=== PATIENT | male | born 2000 | race Caucasian/White ===

== ENCOUNTER 2020-07-08 01:58 | Emergency (ER) | payer MEDICAID ==
[~2020-07-08] VITALS: Ht 177.8 cm; Wt 68.0 kg
[2020-07-08 02:30] VITALS: BP 105/68
--- NOTE | 2020-07-08 02:34 | Emergency Room Report ---
History of Present Illness General Chief Complaint: Flu Like Symptoms Source: Patient Present Illness HPI This is a 20-year-old male with no past medical history. He presents with chief complaint of flulike illness. Ongoing for last couple days. He has congestion, sore throat, diarrhea. Also with loss of taste. He came in because he woke up feeling short of breath. No fever chills. No nausea or vomiting. Girard better now. No sick contact. Allergies: Coded Allergies: No Known Allergies (Unverified , 07/08/20) COVID-19 Screening Contact w/high risk pt: No Experienced COVID-19 symptoms?: No COVID-19 Testing performed ASSOCIATE SCIENTIST: No Patient History Past Medical History: see triage record, old chart reviewed Past Surgical History: none Pertinent Family History: none Social History: Denies: smoking Immunizations: other Reviewed Nursing Documentation: PMH: Agreed; PSxH: Agreed Nursing Documentation-PMH Past Medical History: No Stated History Review of Systems Eye: Denies: eye pain, blurred vision ENT: Reports: nose congestion; Denies: ear pain, throat swelling Respiratory: Reports: shortness of breath; Denies: cough Cardiovascular: Denies: chest pain, palpitations Gastrointestinal: Denies: abdominal pain, diarrhea, nausea, vomiting Musculoskeletal: Denies: back pain, joint pain Skin: Denies: rash Neurological: Denies: headache, numbness Endocrine: Denies: increased thirst, increased urine Hematologic/Lymphatic: Denies: easy bruising All Other Systems: negative except mentioned in HPI Physical Exam Vital Signs Date Time Temp Pulse Resp B/P (MAP) Pulse Ox O2 Delivery O2 Flow Rate FiO2 07/08/20 02:00 97.7 90 20 116/62 (80) 95 Room Air Vitals normal Sp02 EP Interpretation: reviewed, normal General Appearance: well appearing, no apparent distress, alert Head: normocephalic, atraumatic Eyes: bilateral eye PERRL, bilateral eye EOMI ENT: hearing grossly normal, normal pharynx Neck: full range of motion, supple, no meningismus Respiratory: chest non-tender, lungs clear, normal breath sounds Cardiovascular #1: regular rate, rhythm, no murmur Gastrointestinal: normal bowel sounds, non tender, no mass, no organomegaly, no bruit, non-distended Musculoskeletal: back normal, normal range of motion, gait/station normal Psychiatric: mood/affect normal Medical Decision Making Diagnostic Impression: Primary Impression: Suspected 2019 novel coronavirus infection ER Course Patient presents with symptoms concerning for Covid infection. He is in no respiratory distress. Oxygenation is 99 to 100%. Vital signs are stable. No w heezing on my exam. Will discharge home. Last Vital Signs Date Time Temp Pulse Resp B/P (MAP) Pulse Ox O2 Delivery O2 Flow Rate FiO2 07/08/20 02:00 97.7 90 20 116/62 (80) 95 Room Air Status: unchanged Disposition: HOME, SELF-CARE Condition: Stable Scripts Albuterol Sulfate* (Albuterol Sulfate Hfa*) 8.5 Gm Hfa.aer.ad 2 PUFF INH Q4H, #1 INH Prov: Micky Edmondson MD 07/08/20 Referrals: NOT CHOSEN IPA/,REFERRING (PCP) Additional Instructions: Follow-up with your doctor in 7 days. Practice social distancing and wearing mask. Good handwashing. Your Covid test result should be back in 2 to 3 days. We will call you if the test is positive. You can call here at [phone]. Return if symptoms worsen. Micky Edmondson MD Jul 08, 2020 02:33
[2020-07-08] MEDS ORDERED: ALBUTEROL SULF8.5 G1 INH (02:36)
[2020-07-08 02:47] VITALS: BP 105/68
== END 2020-07-08 02:47 | disposition home or self-care (01) ==
LOC: EMR 02:12
DX: R06.02 Shortness of breath (principal); J02.9 Acute pharyngitis, unspecified; R19.7 Diarrhea, unspecified; R43.9 Unspecified disturbances of smell and taste; R09.81 Nasal congestion
CPT/HCPCS: U0004; Z7502; 99283

== ENCOUNTER 2020-07-28 15:03 | Emergency (ER) | payer MEDICAID ==
[~2020-07-28] VITALS: Ht 177.8 cm; Wt 68.0 kg
[~2020-07-28 15:03] MED LIST: ALBUTEROL SULF8.5 G1 INH
[2020-07-28 15:19] VITALS: BP 115/54
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
[2020-07-28] MEDS ORDERED: MUPIROCIN22 GM TOPIC (15:40)
--- NOTE | 2020-07-28 15:40 | Emergency Room Report ---
History of Present Illness General Chief Complaint: Laceration Source: Patient Present Illness HPI 20-year-old male with no symptom hospital history here secondary to a laceration left elbow that happened prior to arrival. Patient accidentally cut himself with a knife. Minimal bleeding noted. Up-to-date with tetanus shot. Has full range of motion of the affected side. Is neurovascularly intact. Linear small laceration noted. Has not taken medication for symptom relief. Denies fever and chills. Allergies: Coded Allergies: No Known Allergies (Unverified , 07/08/20) COVID-19 Screening Contact w/high risk pt: No Experienced COVID-19 symptoms?: No COVID-19 Testing performed MANAGER CLINICAL INFORMATICS: No - 2 weeks ago Patient History Past Medical History: see triage record Past Surgical History: none Pertinent Family History: none Immunizations: UTD Reviewed Nursing Documentation: PMH: Agreed; PSxH: Agreed Nursing Documentation-PMH Past Medical History: No Stated History Review of Systems All Other Systems: negative except mentioned in HPI Physical Exam Vital Signs Date Time Temp Pulse Resp B/P (MAP) Pulse Ox O2 Delivery O2 Flow Rate FiO2 07/28/20 15:05 98.1 56 19 115/54 (74) 98 Room Air Sp02 EP Interpretation: reviewed, normal General Appearance: no apparent distress, alert, GCS 15, non-toxic Head: normocephalic, atraumatic Eyes: bilateral eye normal inspection, bilateral eye PERRL ENT: hearing grossly normal, normal pharynx, no angioedema, normal voice Neck: full range of motion, supple/symm/no masses Respiratory: chest non-tender, lungs clear, normal breath sounds, speaking full sentences Cardiovascular #1: regular rate, rhythm, no edema Cardiovascular #2: 2+ radial (R), 2+ radial (L) Gastrointestinal: soft Musculoskeletal: back normal, other - 400 motion of elbow, full strength of the upper extremities, and is neurovascularly intact Neurologic: alert, motor strength/tone normal, oriented x3, sensory intact, responsive, speech normal Psychiatric: judgement/insight normal, memory normal, mood/affect normal, no suicidal/homicidal ideation Skin: laceration - Superficial laceration left elbow Lymphatic: no adenopathy Procedures Laceration/Wound Repair Laceration/Wound Repair : Consent: Verbal Wound Location: upper extremity - Left elbow Wound's Depth, Shape: superficial Wound Length (cm): 1 Wound Explored: clean Betadine Prep?: Yes Anesthesia: 1% Lidocaine Volume Anesthetic (ccs): 5 Wound Repaired With: sutures Suture Size/Type: 4:0, proline Number of Sutures: 5 Layer Closure?: Yes Sterile Dressing Applied?: Yes Splint Applied?: No Type of Splint Applied: JOSE MANUEL wrap applied Patient Tolerated: Well Complications: None Medical Decision Making PA Attestation All diagnoses and treatment plans were reviewed and discussed with my supervising physician Dr. Pineda Diagnostic Impression: Primary Impression: Laceration of elbow ER Course 20-year-old male with no symptom hospital history here secondary to a laceration left elbow that happened prior to arrival. Patient accidentally cut himself with a knife. Minimal bleeding noted. Up-to-date with tetanus shot. Has full range of motion of the affected side. Is neurovascularly intact. Linear small laceration noted. Has not taken medication for symptom relief. Denies fever and chills. Ddx considered but are not limited to : Superficial laceration, deep laceration, tendon involvement with laceration, laceration with foreign body Vital signs: are WNL, pt. is afebrile H&PE are most consistent with: Laceration of elbow ORDERS: Mupirocin ointment, ED INTERVENTIONS: Wound cleaned, repaired and dressed DISCHARGE: At this time pt. is stable for d/c to home. Will provide printed patient care instructions, and any necessary prescriptions. Care plan and follow up instructions have been discussed with the patient prior to discharge. Patient take medication as directed, sutures to be removed in 5 to 7 days, if worsening symptoms return to the emergency room Last Vital Signs Date Time Temp Pulse Resp B/P (MAP) Pulse Ox O2 Delivery O2 Flow Rate FiO2 07/28/20 15:19 98.1 19 115/54 98 Room Air 07/28/20 15:05 56 Disposition: HOME, SELF-CARE Condition: Stable Scripts Mupirocin* (MUPIROCIN*) 22 Gm Oint...g. 1 APPLIC TOPIC THREE TIMES A DAY, #22 GM Prov: Harshil Allen 07/28/20 Referrals: NOT CHOSEN [facility]/,REFERRING (PCP) Patient Instructions: Laceration Care, Adult Additional Instructions: Take medication as directed, follow primary care provider, if worsening symptoms return to the emergency room Harshil Allen Jul 28, 2020 15:40
[2020-07-28] MEDS ORDERED: Bacitracin Oint UD TOPIC ONE (15:45)
[2020-07-28 15:53] VITALS: BP 118/60
--- NOTE | 2020-07-28 15:53 | NUR ---
ER DISCHARGE NOTE: Patient is cleared to be discharged per ERPA, pt is aox4, on room air, with stable vital signs. pt was given dc and prescription instructions, pt was able to verbalize understanding, pt id band removed. pt is able to ambulate with steady gait. pt took all belongings.
== END 2020-07-28 15:53 | disposition home or self-care (01) ==
LOC: EMR 15:16
DX: S51.012A Laceration without foreign body of left elbow, initial encounter (principal); W26.0XXA Contact with knife, initial encounter; Y93.9 Activity, unspecified; Y92.9 Unspecified place or not applicable
CPT/HCPCS: 10060; Z7502; 99282